=== PATIENT | female | born 1945 ===

== ENCOUNTER 2018-02-20 02:27 | Emergency (ER) | payer OTHER, MEDICAID ==
[2018-02-20] MEDS ORDERED: Sodium Chloride 0.9% 1,000 ML IV STA (03:06)
[2018-02-20] MEDS ORDERED: Iohexol 240 (50 ml) PO ONE (03:06)
--- NOTE | 2018-02-20 03:25 | ED PDOC ---
HPI: Abdomen Time Seen by Provider: 02/20/18 02:54 Chief Complaint (Nursing): Abdominal Pain Chief Complaint (Provider): Nausea, vomiting, diarrhea, abdominal pain History Per: Patient History/Exam Limitations: no limitations Onset/Duration Of Symptoms: Hrs (since 19:30) Outside of [place] travel?: No Current Symptoms Are (Timing): Still Present Associated Symptoms: Nausea, Vomiting, Diarrhea. denies: Fever, Chills Additional Complaint(s): 72 year old female, with a past medical history of diabetes and HTN, presents to the ER with nausea, vomiting, diarrhea and abdominal pain which started at 19:30. Patient reports having 5 episodes of nonbloody, nonbilious food colored vomiting. She also reports having diarrhea which was initially watery. Last 2 episodes of diarrhea were watery mixed with bright red blood. She states she also has pain all over her stomach. Denies fever, chills, recent travel, or abdominal surgeries. PMD: in [place], [place] Past Medical History Reviewed: Historical Data, Nursing Documentation, Vital Signs Vital Signs: Last Vital Signs Temp 97.5 F L 02/20/18 02:44 Pulse 86 02/20/18 02:44 Resp 18 02/20/18 02:44 BP 176/75 H 02/20/18 02:44 Pulse Ox 100 02/20/18 02:44 - Medical History PMH: Diabetes, HTN - Surgical History Surgical History: No Surg Hx - Family History Family History: States: Unknown Family Hx - Allergies Allergies/Adverse Reactions: Allergies Allergy/AdvReac Type Severity Reaction Status Date / Time ciprofloxacin [From Cipro] Allergy RASH Verified 02/20/18 02:44 Penicillins Allergy RASH Verified 02/20/18 02:44 Review of Systems ROS Statement: Except As Marked, All Systems Reviewed And Found Negative Constitutional: Negative for: Fever, Chills Gastrointestinal: Positive for: Nausea, Vomiting, Abdominal Pain, Diarrhea Physical Exam - Reviewed Nursing Documentation Reviewed: Yes Vital Signs Reviewed: Yes - Physical Exam Appears: Positive for: Uncomfortable Head Exam: Positive for: ATRAUMATIC, NORMOCEPHALIC Skin: Positive for: Normal Color, Warm, Dry Eye Exam: Positive for: Normal appearance Neck: Positive for: Normal, Painless ROM Cardiovascular/Chest: Positive for: Regular Rate, Rhythm Respiratory: Positive for: Normal Breath Sounds. Negative for: Wheezing, Respiratory Distress Gastrointestinal/Abdominal: Positive for: Soft, Tenderness (diffuse tenderness to palpation of the abdomen). Negative for: Guarding, Rebound Rectal: Positive for: Normal Exam, Other (stool color is pale pink) Extremity: Positive for: Normal ROM Neurologic/Psych: Positive for: Alert, Oriented. Negative for: Motor/Sensory Deficits - Laboratory Results Result Diagrams: 02/20/18 03:30 02/20/18 03:30 - ECG O2 Sat by Pulse Oximetry: 100 (RA) Pulse Ox Interpretation: Normal Medical Decision Making Medical Decision Making: Initial Impression: 72 year old female with history of diabetes and HTN presenting with nausea, vomiting, diarrhea, and abdominal pain. Patient is uncomfortable, but vitals are stable. Concern for gastroenteritis vs colitis, vs diverticulitis vs others not mentioned. Initial Plan: --CT abd/pelvis --BMP --Lipase stat --LFT --CBC --Sodium chloride 1000mL IV --Iohexol 50mL PO --Toradol 15mg IV --Zofran 4mg IV --Occult blood stat --Urinalysis 07:[address] Gonzalez. Scribe Attestation: Documented by Franky Solorio acting as a scribe for Tay Welch MD. Provider Scribe Attestation: All medical record entries made by the Scribe were at my direction and personally dictated by me. I have reviewed the chart and agree that the record accurately reflects my personal performance of the history, physical exam, medical decision making, and the department course for this patient. I have also personally directed, reviewed, and agree with the discharge instructions and disposition. Disposition - Clinical Impression Clinical Impression: Gastroenteritis - Patient ED Disposition Is Patient to be Admitted: Transfer of Care - Disposition Disposition: Transfer of Care Disposition Time: 07:00 Condition: STABLE Forms: [employer] ([place]i) Patient Signed Over To: Holli Gonzalez Handoff Comments: pending CT and re-eval
[2018-02-20 03:47] LABS: BASO % 0.2 % (0.0-2.0); EOS % 0.1 % (0.0-4.0); HEMOGLOBIN 11.4 g/dL (12.0-16.0); LYMPH # 1.3 K/uL (1.0-4.3); LYMPH % 13.6 % (20.0-40.0); MEAN CELL VOLUME 84.3 fl (81.0-99.0); MEAN CORPUSCULAR HEMOGLOBIN 27.3 pg (27.0-31.0); MEAN CORPUSCULAR HGB CONC 32.4 g/dL (33.0-37.0); MEAN PLATELET VOLUME 9.2 fl (7.2-11.7); MONO # 0.2 K/uL (0.0-0.8); MONO % 2.6 % (0.0-10.0); NEUT # 8.1 K/uL (1.8-7.0); NEUT % 83.5 % (50.0-75.0); RBC 4.16 Mil/uL (3.80-5.20); RED CELL DISTRIBUTION WIDTH 13.3 % (11.5-14.5); WHITE BLOOD COUNT 9.7 K/uL (4.8-10.8)
[2018-02-20 03:54] LABS: ALB/GLOB RATIO 1.2 (1.0-2.1); ALBUMIN 4.2 g/dL (3.5-5.0); ALT/SGPT 19 U/L (9-52); AST/SGOT 30 U/L (14-36); BILIRUBIN,DIRECT 0.1 mg/ml (0.0-0.4); BLOOD UREA NITROGEN 20 mg/dl (7-17); CALCIUM 9.8 mg/dL (8.4-10.2); GFR NON-AFRICAN AMERICAN > 60; LIPASE 53 U/L (23-300)
[2018-02-20] MEDS ORDERED: Iohexol 240 (50 ml) ONE (04:15)
[2018-02-20] MEDS ORDERED: Iohexol 300 100 ML IJ ONE (07:04)
[2018-02-20] MEDS ORDERED: Sodium Chloride 0.9% 50 ML IV ONE (07:05)
--- NOTE | 2018-02-20 07:30 | ED PDOC ---
- Laboratory Results Result Diagrams: 02/20/18 03:30 02/20/18 03:30 - ECG O2 Sat by Pulse Oximetry: 100 (RA) Pulse Ox Interpretation: Normal Medical Decision Making Medical Decision Making: Time: 0700 -- Patient endorsed to me by Dr. Welch, pending CT results. Time: 08 CT RESULTS FINDINGS: Lung bases are clear. Liver, gallbladder, spleen, pancreas and adrenal glands appear normal. Kidneys demonstrate no hydronephrosis. No bowel obstruction is seen. Appendix appears normal. Wall thickening is identified in the distal transverse colon and proximal descending colon compatible with colitis. Urinary bladder appears normal. No free air or free fluid is seen. Uterus and ovaries appear normal. No abdominal aortic aneurysm is seen. Bones appear intact. IMPRESSION: 1. Thickening of the distal transverse colon and proximal descending colon is compatible with colitis. No bowel obstruction is seen. Appendix is normal. Thank you for your kind referral of this patient. We appreciate the opportunity to participate in this patient's care. Electronically signed on Feb 20, 2018 8:57:23 AM EST by: Tony Garcia M.D., CARLOS Certified By [facility] Fellowship Trained MRI and CT Specialist Time: 1056 -- Patient reports of feeling better, abdominal pain improved. Discussed with p atient and daughter results. Daughter and patient agree with discharge home. Patient will follow up with PMD within the next two days. Scribe Attestation: Documented by Koko Mehta, acting as a scribe for Holli Gonzalez MD. Provider Scribe Attestation: All medical record entries made by the Scribe were at my direction and personally dictated by me. I have reviewed the chart and agree that the record accurately reflects my personal performance of the history, physical exam, medical decision making, and the department course for this patient. I have also personally directed, reviewed, and agree with the discharge instructions and disposition. Disposition Counseled Patient/Family Regarding: Studies Performed, Diagnosis, Need For Followup - Clinical Impression Clinical Impression: Gastroenteritis - Disposition Disposition: Routine/Home Disposition Time: 10:57 Condition: STABLE Forms: [employer] (Croatian)
[2018-02-20] MEDS ORDERED: metroNIDAZOLE 500mg/100ml NS 100 ML IV STA (09:05)
[2018-02-20] MEDS ORDERED: metroNIDAZOLE 500mg/100ml NS 100 ML IVPB ONE (09:15)
--- NOTE | 2018-02-20 09:29 | CT ---
Date of service: 02/20/2018 PROCEDURE: CT Abdomen and Pelvis with contrast HISTORY: diffuse abd pain, n/v/d COMPARISON: None. TECHNIQUE: Contrast dose: Radiation dose: Total exam DLP = 190.52 mGy-cm. This CT exam was performed using one or more of the following dose reduction techniques: Automated exposure control, adjustment of the mA and/or kV according to patient size, and/or use of iterative reconstruction technique. FINDINGS: LOWER THORAX: Unremarkable. LIVER: Unremarkable. No gross lesion or ductal dilatation. GALLBLADDER AND BILE DUCTS: Unremarkable. PANCREAS: Unremarkable. No gross lesion or ductal dilatation. SPLEEN: Unremarkable. ADRENALS: Unremarkable. No mass. KIDNEYS AND URETERS: Unremarkable. No hydronephrosis. No solid mass. VASCULATURE: Unremarkable. No aortic aneurysm. No aortic atherosclerotic calcification or mural plaque present. BOWEL: Thickening of the distal transverse colon and proximal descending colon compatible with colitis. No bowel obstruction. APPENDIX: Normal appendix. PERITONEUM: Unremarkable. No free fluid. No free air. LYMPH NODES: Unremarkable. No enlarged lymph nodes. BLADDER: Unremarkable. REPRODUCTIVE: Unremarkable. BONES: No acute fracture. OTHER FINDINGS: None. IMPRESSION: Thickening of the distal transverse colon and proximal descending colon compatible with colitis. No bowel obstruction.
[2018-02-20] MEDS ORDERED: Vancomycin 1 g Inj ONE (10:25)
[2018-02-20 10:37] LABS: SQUAMOUS EPITHIAL 1 /hpf (0-5); URINE BILIRUBIN NEGATIVE (NEGATIVE); URINE CLARITY CLEAR (Clear); URINE COLOR STRAW (YELLOW); URINE GLUCOSE (UA) NEG (NEGATIVE); URINE PROTEIN NEGATIVE (NEGATIVE); URINE UROBILINOGEN 0.2-1.0 mg/dL (0.2-1.0)
[2018-02-20 10:39] LABS: URINE BACTERIA RARE (<OCC)
[2018-02-20 10:54] LABS: URINE BLOOD NEGATIVE (NEGATIVE); URINE LEUKOCYTE ESTERASE NEGATIVE Leu/uL (Negative)
[2018-02-20 12:09] VITALS: BP 125/80; PULSE 81; RESP 16; TEMP 97.9; O2SAT 99
== END 2018-02-20 12:09 | disposition home or self-care (01) ==
LOC: H.ER 02:27
DX: K52.9 Noninfective gastroenteritis and colitis, unspecified (principal); E11.9 Type 2 diabetes mellitus without complications; I10 Essential (primary) hypertension; Z88.0 Allergy status to penicillin
CPT/HCPCS: 74177; 80048; 80076; 81003; 83690; 85025; 96361; 96365; 96375; 99283; G0328; J1885; J2405; J7030; Q9966; Q9967